=== PATIENT | male | born 2000 | race Caucasian/White ===

== ENCOUNTER 2018-12-02 02:34 | Emergency (ER) | payer OTHER ==
[~2018-12-02] VITALS: Ht 182.9 cm; Wt 70.8 kg
--- NOTE | 2018-12-02 02:46 | NUR ---
PT BIB EMS WITH [employer].PT ADMITS TO XANAX & METH USE. PT DENIES SI OR HI. PT AAOX4. PT APPEARS DROWSEY. DENIES PAIN.
--- NOTE | 2018-12-02 02:56 | NUR ---
MEDICALLY CLEARED FOR BOOKING AND DISCHARGED. PT IN CUSTODY WITH [employer]. ABLE TO AMBULATE WITH STEADY GAIT.
[2018-12-02 02:59] VITALS: BP 120/78
== END 2018-12-02 03:00 ==
LOC: ER 02:37
DX: F19.10 Other psychoactive substance abuse, uncomplicated (principal)